=== PATIENT | male | born 1975 | race Two or more races ===

== ENCOUNTER 2024-04-06 18:47 | Inpatient (IN) | payer MEDICAID, OTHER ==
[~2024-04-06] VITALS: Ht 182.9 cm; Wt 141.0 kg
--- NOTE | 2024-04-06 19:27 | ED.PDOC ---
HPI Comments HPI: PMHx: PSHx: Initial Vital Signs: BP: 130/68 HR: 65 Temp: 98.0F SpO2: 97% RR: 17 \ HPI: Poor Historian. 48-year-old male presents to the emergency department for left-sided chest pain intermittent in the last two weeks worse today with the associated left jaw numbness tingling and radiation to the left upper extremity. Patient denies any use of drugs or tobacco. He only uses marijuana. Patient does not seem like he goes to the doctor much and he may have many underlying medical conditions that have not been formally diagnosed. Past Medcial History: Marijuana abuse, obesity, Past Surgical History: Denies any REVIEW OF SYSTEMS: CONSTITUTIONAL: Denies acute: fever, diaphoresis, chills, generalized weakness. HEAD: Denies acute: headache, photophobia Eyes: Denies acute: Double vision, vision loss, eye pain, eye discharge. EARS: Denies acute: tinnitus, hearing loss, ear discharge, ear pain, THROAT: Denies acute: sore throat, swelling, difficulty swallowing , pain with swallowing, change in voice. NECK: Denies acute: neck pain, neck swelling, stiff neck. HEART: Denies acute : palpitations, LUNGS: Denies acute: SOB, wheezing, cough, hemoptysis ABDOMEN: Denies acute: abdominal pain, Nausea, Vomiting, diarrhea, melena , hematemesis, hematochezia SKIN: Denies acute: rash, redness, lesions, itchiness. EXTREMITIES: Denies acute: calf pain, weakness, denies pain in extremity. Denies acute: Low back pain. Neuro: Denies acute: focal neurological deficit, motor or sensory focal neurological deficit, tremors, seizure like activity, confusion, dizziness, change in mental status, loss of bowel or bladder function, cauda equina like symptoms. : Denies acute: dysuria, hematuria, flank pain, increase in urinary frequency. PSYCH: Denies acute: hallucination, suicidal ideation, homicidal ideation. PHYSICAL EXAM: General: no acute distress, awake and alert. Head: normocephalic, atraumatic. Neck: supple, trachea is midline, no swelling. Throat: Normal phonation. Eyes:, no erythema, no purulent discharge, no proptosis, no icterus. Heart: regular rate, regular rhythm, no significant murmur appreciated. Lungs: no apparent respiratory distress, Able to speak in full sentences. No wheezing, no rhonchi, no crackles. No stridors Clear to auscultation bilaterally. Abdomen: non tender to palpation, non distended, soft, no guarding, no rebound, + bowel sounds. Obese Neuro: Awake, Alert, oriented to name, self, situation, follows commands GCS=15. Speech is normal. Skin: no petechia, no purpura, no cyanosis, non-pale, not jaundice. Lower extremities: --no - Pitting edema no deformity, no focal swelling, no calf TTP. Makes eye contact. moves all four extremities. Face: no apparent facial droop. Ambulating in the ED independently. Chief Complaint: Chest Pain Time Seen by MD: 18:59 Reviewed Notes: Medications, Allergies Allergies: Coded Allergies: NO KNOWN ALLERGIES (Unverified , 04/06/24) Information Source: Patient Mode of Arrival: Ambulatory Was a procedure done? Was a procedure done?: No X-Ray, Labs, Meds, VS Vital Signs Date Time Temp Pulse Resp B/P (MAP) Pulse Ox O2 Delivery O2 Flow Rate FiO2 04/06/24 19:01 Room Air 0 04/06/24 18:57 98.0 65 17 130/68 (88) 97 04/06/24 18:51 65 Lab Test 04/06/24 20:06 04/06/24 19:11 Range/Units Lactic Acid Level 0.8 0.4-2.0 mmol/L Troponin I High Sensitivity 3 L 3 L </=54 ng/L Thyroid Stimulating Hormone (TSH) 3.12 0.55-4.78 uIU/mL White Blood Count 11.8 H 4.4-10.8 10^3/uL Red Blood Count 5.38 4.5-5.90 10^6/uL Hemoglobin 15.1 13.5-17.5 g/dL Hematocrit 44.6 41.0-53.0 % Mean Corpuscular Volume 82.9 80.0-100.0 fL Mean Corpuscular Hemoglobin 28.0 28.0-32.0 pg Mean Corpuscular Hemoglobin Concent 33.8 32.0-36.0 g/dL Red Cell Distribution Width 14.1 11.8-14.3 % Platelet Count 271 140-450 10^3/uL Mean Platelet Volume 9.4 6.9-10.8 fL Neutrophils (%) (Auto) 53.3 37.0-80.0 % Lymphocytes (%) (Auto) 35.7 10.0-50.0 % Monocytes (%) (Auto) 8.0 0.0-12.0 % Eosinophils (%) (Auto) 2.0 0.0-7.0 % Basophils (%) (Auto) 1.0 0.0-2.0 % Neutrophils # (Auto) 6.3 1.6-8.6 10 ^3/uL Lymphocytes # (Auto) 4.2 0.4-5.4 10 ^3/uL Monocytes # (Auto) 0.9 0-1.3 10 ^3/uL Eosinophils # (Auto) 0.2 0-0.8 10 ^3/uL Basophils # (Auto) 0.1 0-0.2 10 ^3/uL Nucleated Red Blood Cells 0.0 % D-Dimer, Quantitative 0.20 0.0-0.49 mg/L FEU Sodium Level 137 136-145 mmol/L Potassium Level 3.4 L 3.5-5.1 mmol/L Chloride Level 105 98-107 mmol/L Carbon Dioxide Level 25 20-31 mmol/L Anion Gap 7 5-15 Blood Urea Nitrogen 13 9-23 mg/dL Creatinine 1.00 0.700-1.30 mg/dL Glomerular Filtration Rate Calc 94 >90 mL/min BUN/Creatinine Ratio 13.0 10.0-20.0 Serum Glucose 96 74-106 mg/dL Calcium Level 9.9 8.7-10.4 mg/dL Magnesium Level 1.8 1.6-2.6 mg/dL Total Bilirubin 0.5 0.2-1.0 mg/dL Aspartate Amino Transferase (AST) 25 13-40 U/L Alanine Aminotransferase (ALT) 41 H 7-40 U/L Alkaline Phosphatase 79 46-116 U/L Total Protein 7.5 5.7-8.2 g/dL Albumin 4.5 3.2-4.8 g/dL [address] [address] Ph: [phone] DIAGNOSTIC IMAGING Diagnostic Imaging Report : [id number] Signed PATIENT: SHADI TERRYEO ACCT: [id number] UNIT: [id number] : 1975 LOC: ER ROOM / BED: / AGE / SEX: 48 / M ADM STATUS: REG ER SERVICE 08 ORDERING PHYSICIAN: GERMAN HERNANDEZ DO PROCEDURE(s): CXRP - CHEST PORTABLE REASON: cp ORDER NUMBER(s): [id number], ACCESSION NUMBER(s): [id number] EXAM: XR Chest, 1 View CLINICAL INDICATION: cp TECHNIQUE: Frontal view of the chest. COMPARISON: None FINDINGS: LUNGS AND PLEURAL SPACES: Unremarkable. No consolidation. No pneumothorax. HEART: Unremarkable. No cardiomegaly. MEDIASTINUM: Unremarkable. Normal mediastinal contour. BONES/JOINTS: Unremarkable. No acute fracture. OTHER FINDINGS: . . . IMPRESSION: No acute cardiopulmonary process. HS:Y ATED BY: STIVEN HENLEY MD DICTATED DATE/TIME: 04/06/241924 SIGNED BY: STIVEN HENLEY MD SIGNED DATE/TIME: 04/06/241924 CC: Reevaluation 1ST: Unchanged Patient Education/Counseling: Diagnosis, Treatment Family Education/Counseling: Diagnosis, Treatment Departure 1 Departure Time of Disposition: 19:43 Impression: Primary Impression: Chest pain Disposition: 09 ADMITTED INPATIENT Admit to: [facility] Condition: Guarded Discharged With: Self Critical Care Note Critical Care Time?: No Heart Score Heart Score: Heart Score Response (Comments) Value History Moderate Suspicious 1 EKG Normal 0 Age 45-64 1 Risk Factors 1 or 2 risk factors 1 Troponin Normal limit 0 Total 3 I personally scribed for GERMAN HENRANDEZ DO ([email or web address]) on 04/06/24 at 19:27. Electronically submitted by Varun Toledo ([email or web address]). I personally scribed for GERMAN HERNANDEZ DO ([email or web address]) on 04/07/24 at 01:37. Electronically submitted by Abdelrahman Chi ([email or web address]). GERMAN HERNANDEZ DO Apr 06, 2024 19:27
[2024-04-06 19:40] LABS: Basophils # (auto) 0.1 10 ^3/uL (0-0.2); Eosinophils # (auto) 0.2 10 ^3/uL (0-0.8); Hematocrit 44.6 % (41.0-53.0); Hemoglobin 15.1 g/dL (13.5-17.5); Lymphocytes # (auto) 4.2 10 ^3/uL (0.4-5.4); Lymphocytes % (auto) 35.7 % (10.0-50.0); Mean Corpuscular Hgb Conc. 33.8 g/dL (32.0-36.0); Mean Corpuscular Volume 82.9 fL (80.0-100.0); Monocytes # (auto) 0.9 10 ^3/uL (0-1.3); Neutrophils # (auto) 6.3 10 ^3/uL (1.6-8.6); Neutrophils % (auto) 53.3 % (37.0-80.0); Platelet Count (auto) 271 10^3/uL (140-450); Red Blood Cells 5.38 10^6/uL (4.5-5.90); Red Cell Distribution Width 14.1 % (11.8-14.3); White Blood Cell 11.8 10^3/uL (4.4-10.8)
[2024-04-06 19:58] LABS: Albumin 4.5 g/dL (3.2-4.8); Alkaline Phosphatase 79 U/L (46-116); Anion Gap 7 (5-15); Aspartate Aminotransferase 25 U/L (13-40); Blood Urea Nitrogen 13 mg/dL (9-23); Calcium 9.9 mg/dL (8.7-10.4); Carbon Dioxide 25 mmol/L (20-31); Chloride 105 mmol/L (98-107); Glucose 96 mg/dL (74-106); Sodium 137 mmol/L (136-145)
[2024-04-06 19:59] LABS: Bilirubin, Total 0.5 mg/dL (0.2-1.0); Total Protein 7.5 g/dL (5.7-8.2)
[2024-04-06 20:04] LABS: Alanine Aminotransferase 41 U/L (7-40); Potassium 3.4 mmol/L (3.5-5.1)
--- NOTE | 2024-04-06 23:10 | ECG ---
[facility] Test Date: 2024-04-06 Test Time: 18:51:41 Pat Name: HIEU MELTON Department: ER Room: 0271T Gender: M Onion Tier: JOSUÉ : 1975 Requested By: MICHELLE ROY Order Number: [id number] Reading MD: Everardo Villalpando Measurements Intervals [place] Rate: 65 P: 14 ID: [id number] QRS: 73 QRSD: 109 T: -8 QT: 405 QTc: 422 Interpretive Statements Sinus rhythm Probable inferior infarct, age indeterminate Electronically Signed On 04-08-2024 10:20:56 PST by Everardo Villalpando Please click the below link to view image of tracing.
[2024-04-07] MEDS ORDERED: NITROGLYCERIN 0.4 MG SL TAB SL PRN
[2024-04-07] MEDS ORDERED: MORPHINE SULFATE INJ 2 MG/ml SYRG IV PRN
[2024-04-07] MEDS: ASPirin 325 MG TAB PO ONE (03:21)
[2024-04-07] MEDS: NITROGLYCERIN 0.4 MG SL TAB SL ONE (03:22)
[2024-04-07] MEDS: POTASSIUM CHL 20 Meq TABLET PO ONE (03:22)
[2024-04-07] MEDS: ATORVASTATIN 20 MG TAB PO ONE (03:22)
[2024-04-07] MEDS: SODIUM CHLORIDE 0.9% 500 ML IV ONE (03:42)
--- NOTE | 2024-04-07 04:10 | DVHHPRES ---
History of Present Illness Resident Creating Document: MIGUELYING RESIDENT History of Present Illness Patient is a 48-year-old male with a no significant past medical history came to the ED with a chief complaint of chest pain. Patient reports that since about 2 weeks ago he started to have intermittent chest pain which was substernal in location, pressure-like with the associated intermittent sharp pain, radiation into the left arm with numbness and tingling of the hand, and occurring at rest, no association with taking deep breaths, denies acid reflux, nausea, indigestio n, dysphagia. Patient reports that today the pain was worst of all and he took ibuprofen and to aspirins which improved the pain. Patient reported mild shortness of breath. Denied orthopnea, PND. Patient has never experienced similar chest pain before. Past medical history: None Past surgical history: Appendectomy Family history: No history of heart disease in family Social history: Patient was family and denies smoking tobacco, drink alcohol but smokes marijuana 4-5 blunts every day Home Medications: None Review of Systems Review of Systems At the time of examination patient reported mild substernal, nonradiating chest pain with the associated numbness in the left hand Denied shortness of breath, palpitations Denied nausea, vomiting, abdominal pain Allergies: Coded Allergies: NO KNOWN ALLERGIES (Unverified , 04/06/24) Medications Current Medications Medications Dose Ordered Sig/Ruy Route Start Time Stop Time Status Last Admin Dose Admin Nitroglycerin 0.4 mg Q5MINP PRN SL 04/07/24 00:00 Morphine Sulfate 2 mg Q30M PRN IV 04/07/24 00:00 Atorvastatin Calcium 40 mg HS PO 04/07/24 22:00 Exam Vital Signs Vital Signs Date Time Temp Pulse Resp B/P (MAP) Pulse Ox O2 Delivery O2 Flow Rate FiO2 04/07/24 03:04 97.8 62 16 143/84 (103) 96 97.8 04/06/24 19:01 Room Air 0 Exam Physical Examination Constitutional: Patient was alert and oriented to time, place and person, is morbidly obese with BMI 40, does not appear to be in any acute distress Gen - no pallor, no icterus, no cyanosis, no clubbing, no LAD, no edema . Skin - Patients skin is warm and dry. HEENT - normocephalic, atraumatic, moist mucous membranes. Neck - full ROM, no LAD, no JVD. Pulmonary - B/L vesicular breath sounds. no crackles , no wheezing cardiovascular - normal S1,S2 heard. no murmurs heard. GI - soft abdomen without tenderness to palpation . no hepatospleenomegaly. Bowel sounds normoactive Neurological - Bilateral upper extremity strength 5/5, bilateral lower extremity strength 5/5, no facial droop, normal speech, no tremor, no sensory deficiets. Labs/Xrays Labs Test 04/06/24 20:06 04/06/24 19:11 Range/Units Lactic Acid Level 0.8 0.4-2.0 mmol/L Troponin I High Sensitivity 3 L </=54 ng/L Thyroid Stimulating Hormone (TSH) 3.12 0.55-4.78 uIU/mL White Blood Count 11.8 H 4.4-10.8 10^3/uL Red Blood Count 5.38 4.5-5.90 10^6/uL Hemoglobin 15.1 13.5-17.5 g/dL Hematocrit 44.6 41.0-53.0 % Mean Corpuscular Volume 82.9 80.0-100.0 fL Mean Corpuscular Hemoglobin 28.0 28.0-32.0 pg Mean Corpuscular Hemoglobin Concent 33.8 32.0-36.0 g/dL Red Cell Distribution Width 14.1 11.8-14.3 % Platelet Count 271 140-450 10^3/uL Mean Platelet Volume 9.4 6.9-10.8 fL Neutrophils (%) (Auto) 53.3 37.0-80.0 % Lymphocytes (%) (Auto) 35.7 10.0-50.0 % Monocytes (%) (Auto) 8.0 0.0-12.0 % Eosinophils (%) (Auto) 2.0 0.0-7.0 % Basophils (%) (Auto) 1.0 0.0-2.0 % Neutrophils # (Auto) 6.3 1.6-8.6 10 ^3/uL Lymphocytes # (Auto) 4.2 0.4-5.4 10 ^3/uL Monocytes # (Auto) 0.9 0-1.3 10 ^3/uL Eosinophils # (Auto) 0.2 0-0.8 10 ^3/uL Basophils # (Auto) 0.1 0-0.2 10 ^3/uL Nucleated Red Blood Cells 0.0 % D-Dimer, Quantitative 0.20 0.0-0.49 mg/L FEU Sodium Level 137 136-145 mmol/L Potassium Level 3.4 L 3.5-5.1 mmol/L Chloride Level 105 98-107 mmol/L Carbon Dioxide Level 25 20-31 mmol/L Anion Gap 7 5-15 Blood Urea Nitrogen 13 9-23 mg/dL Creatinine 1.00 0.700-1.30 mg/dL Glomerular Filtration Rate Calc 94 >90 mL/min BUN/Creatinine Ratio 13.0 10.0-20.0 Serum Glucose 96 74-106 mg/dL Calcium Level 9.9 8.7-10.4 mg/dL Magnesium Level 1.8 1.6-2.6 mg/dL Total Bilirubin 0.5 0.2-1.0 mg/dL Aspartate Amino Transferase (AST) 25 13-40 U/L Alanine Aminotransferase (ALT) 41 H 7-40 U/L Alkaline Phosphatase 79 46-116 U/L Total Protein 7.5 5.7-8.2 g/dL Albumin 4.5 3.2-4.8 g/dL Assessment/Plan Assessment/Plan Acute chest pain r/o ACS ? Unstable angina PE less likely -12 lead ECG shows sinus rhythm with Q-wave and a T-wave inversion in lead III - troponins trended within normal limits - wells score < 4, ddimer- 0.2 - aspirin 325 mg and atorvastatin 40 mg given - started on atorvastatin and aspirin q.d. - cardiology consulted for further evaluation - HbA1c and lipid panel pending Hypokalemia - replenished Goals of care discussed with the patient for over 21 minutes. Full code Plan discussed with Dr. Cody Plan discussed with: Patient My Orders Orders - YING RIVERA RESIDENT Procedure Category Date Status Time Admit ADMIT 04/06/24 Transmitted 23:49 Nitroglycerin PHA 04/07/24 In Process Sublingual (Ntrostat 00:00 Morphine Sulfate PHA 04/07/24 In Process Injection 00:00 Oxygen By Nasal RT 04/06/24 Transmitted Cannula 23:49 Stat Ekg For Chest WILLEM 04/06/24 In Process Pain 23:49 Notify Of Changes WILLEM 04/06/24 In Process From Base 23:49 Commutator Repairer For WILLEM 04/06/24 In Process 24 Hours 23:49 Emergency Dysrhythmia WILLEM 04/06/24 In Process Protocol 23:49 Drug Screen LAB 04/06/24 Logged 23:49 Urinalysis LAB 04/06/24 Logged 23:49 Complete Blood Count LAB 04/07/24 Logged 04:00 Comprehensive LAB 04/07/24 Logged Metabolic Panel 04:00 Covid19 Antigen [place] LAB 04/06/24 Logged Rapid Influenza A&B LAB 04/06/24 Logged 23:49 Atorvastatin (Lipitor) PHA 04/07/24 In Process 22:00 Code Status CODE 04/07/24 Transmitted 00:02 Cardiac DIET 04/07/24 Transmitted Diet-2gna,Lofat,Lochol Breakfast Date of Service: Apr 06, 2024 Billing Provider: DOTTY CODY MD Common Visit Codes: [id number] INP/OBS CARE (HIGH) Secondary Visit Codes: [id number] CARE PLAN 30 MINUTES YING RIVERA RESIDENT Apr 07, 2024 04:10 DOTTY CODY MD Apr 07, 2024 17:58
[2024-04-07 05:55] VITALS: PULSE 59; RESP 18; O2SAT 95
[2024-04-07 06:59] LABS: Urine Bacteria None Seen /hpf (None Seen)
[2024-04-07 07:21] LABS: Urine Blood Negative /uL (Negative); Urine Clarity Clear (Clear); Urine Color Light-Yellow (Yellow); Urine Mucus FEW (None Seen); Urine Protein, UAD Negative (Negative); Urine Specific Gravity 1.015 (1.001-1.035); Urine Squamous Epithelial Cell FEW /hpf (<5); Urine Urobilinogen Normal (Negative); Urine WBC 1 /hpf (0 - 3); Urine pH 5.5 (5.0-9.0)
[2024-04-07 07:37] LABS: Amphetamine Screen, Urine Neg (NEGATIVE); Barbiturate Scree,Urine Neg (NEGATIVE); Benzodiazephine Screen, Urine Neg (NEGATIVE); Cannabinoid Screen, Urine Pos (NEGATIVE); Cocaine Screen, Urine Neg (NEGATIVE); Opiate Scree,Urine Neg (NEGATIVE); Phencyclidine Screen, Urine Neg (NEGATIVE)
[2024-04-07 07:43] LABS: Basophils # (auto) 0.1 10 ^3/uL (0-0.2); Basophils % (auto) 1.1 % (0.0-2.0); Eosinophils # (auto) 0.2 10 ^3/uL (0-0.8); Eosinophils % (auto) 2.1 % (0.0-7.0); Hemoglobin 15.3 g/dL (13.5-17.5); Lymphocytes # (auto) 2.7 10 ^3/uL (0.4-5.4); Lymphocytes % (auto) 25.4 % (10.0-50.0); Mean Corpuscular Hemoglobin 28.1 pg (28.0-32.0); Mean Corpuscular Volume 82.9 fL (80.0-100.0); Monocytes # (auto) 0.9 10 ^3/uL (0-1.3); Monocytes % (auto) 8.6 % (0.0-12.0); Neutrophils # (auto) 6.7 10 ^3/uL (1.6-8.6); Neutrophils % (auto) 62.8 % (37.0-80.0); Platelet Count (auto) 260 10^3/uL (140-450); Red Blood Cells 5.43 10^6/uL (4.5-5.90); Red Cell Distribution Width 14.1 % (11.8-14.3); White Blood Cell 10.7 10^3/uL (4.4-10.8)
[2024-04-07 07:46] LABS: COVID19 ANTIGEN SOFIA FIA NEGATIVE (NEGATIVE); Rapid Influenza A Negative (Negative); Rapid Influenza B Negative (Negative)
[2024-04-07 08:00] VITALS: PULSE 60; RESP 14; O2SAT 95
[2024-04-07 08:07] LABS: HDL Cholesterol 49 mg/dL (40-59)
[2024-04-07 08:08] LABS: Cholesterol 211 mg/dL (< 200); LDL Cholesterol 153 mg/dL (< 100); Triglycerides 155 mg/dL (< 150)
[2024-04-07 08:09] LABS: Alanine Aminotransferase 39 U/L (7-40); Albumin 4.2 g/dL (3.2-4.8); Alkaline Phosphatase 75 U/L (46-116); Anion Gap 8 (5-15); Aspartate Aminotransferase 23 U/L (13-40); BUN/Creatinine Ratio 9.6 (10.0-20.0); Calcium 9.9 mg/dL (8.7-10.4); Carbon Dioxide 25 mmol/L (20-31); Chloride 104 mmol/L (98-107); Potassium 3.9 mmol/L (3.5-5.1); Sodium 137 mmol/L (136-145)
[2024-04-07 08:10] LABS: Bilirubin, Total 0.8 mg/dL (0.2-1.0); Total Protein 7.2 g/dL (5.7-8.2)
[2024-04-07 08:13] LABS: Blood Urea Nitrogen 9 mg/dL (9-23); Glucose 115 mg/dL (74-106)
[2024-04-07] MEDS: ASPirin 81 mg TAB PO SCH (10:39)
[2024-04-07 10:55] VITALS: BP 161/88; PULSE 76; RESP 17
--- NOTE | 2024-04-07 14:00 | DVHINCON2 ---
Date Seen: Apr 07, 2024 Referring Physician MD [place] resident Reason for Consultation Chest pain, ?unstable angina History of Present Illness This is a 48-year-old male patient who presents to the emergency room with chief complaint of chest pain for two weeks. The patient describes the pain as unprovoked, intermittent, pressure-like in nature, left-sided with radiation down his left arm with associated left arm numbness. The patient comes to emergency room for further evaluation. Initial twelve lead electrocardiogram reveals normal sinus rhythm with nonspecific ST changes to inferior lead (III). A repeat twelve lead electrocardiogram reveals normal sinus rhythm without any significant ST segment changes. Initial and repeat troponin level have been negative. Significant past medical history includes marijuana use and morbid obesity. The patient denies following up with a primary care doctor in the outpatient setting. Past Medical History Past medical history reviewed. No other significant than mentioned above. Past Surgical History Denies Family History Family history reviewed. Social History Patient admits to marijuana use, denies all other illicit drugs The patient denies any alcohol use Patient denies tobacco use Allergies: Coded Allergies: NO KNOWN ALLERGIES (Unverified , 04/06/24) Home Meds Denies any home medications Current Medications Current Medications Medications (Trade) Dose Ordered Sig/Ruy Route PRN Reason Start Time Stop Time Status Last Admin Nitroglycerin (Ntrostat Sublingual) 0.4 mg Q5MINP PRN SL FOR CHEST PAIN 04/07/24 00:00 Morphine Sulfate 2 mg Q30M PRN IV FOR CHEST PAIN 04/07/24 00:00 Atorvastatin Calcium (Lipitor) 40 mg HS PO 04/07/24 22:00 Aspirin 81 mg DAILY PO 04/07/24 10:00 04/07/24 10:39 Atorvastatin Calcium (Lipitor) 40 mg HS PO 04/07/24 22:00 04/07/24 04:05 DC Review of Systems Constitutional: No symptom reported Ears, Nose, & Throat: No symptom reported Eyes: No symptom reported Neurological: No symptoms reported Pulmonary/Respiratory: No symptoms reported Cardiovascular: Chest pain Gastrointestinal: No symptom reported Genitourinary: No symptom reported Musculoskeletal: No symptom reported Skin: No symptom reported Psychiatric: No symptom reported Endocrine: No symptom reported Hematologic/Lymphatic: No symptom reported Vital Signs Vital Signs Date Time Temp Pulse Resp B/P (MAP) Pulse Ox O2 Delivery O2 Flow Rate FiO2 04/07/24 12:00 77 16 122/58 (79) 99 04/07/24 08:00 98.4 98.4 04/07/24 08:00 Room Air* 0 21 Physical Exam General Appearance: Cooperative. Morbidly obese Pulmonary/Respiratory: Clear, bilateral breaths sounds. Cardiovascular/Chest: Regular rate and rhythm. Peripheral Pulses: 2+ Radial (R). 2+ Radial (L). 2+ Pedal (R). 2+ Pedal (L) Abdominal Exam: Normal bowel sounds. Ankle Exam: Negative ankle edema Lower extremities: Negative lower extremity edema Neuro/Mental Status: A/OX4, coherent. Thoughts/Psych: Normal thought pattern. Appropriate mood and affect. Good judgment and insight. Appearance: No acute distress. Skin Exam: Normal inspection. Normal color. Warm and dry. Labs/Diagnostic Data Labs Test 04/07/24 07:10 04/07/24 06:25 04/07/24 05:55 04/06/24 20:06 Range/Units White Blood Count 10.7 4.4-10.8 10^3/uL Red Blood Count 5.43 4.5-5.90 10^6/uL Hemoglobin 15.3 13.5-17.5 g/dL Hematocrit 45.0 41.0-53.0 % Mean Corpuscular Volume 82.9 80.0-100.0 fL Mean Corpuscular Hemoglobin 28.1 28.0-32.0 pg Mean Corpuscular Hemoglobin Concent 34.0 32.0-36.0 g/dL Red Cell Distribution Width 14.1 11.8-14.3 % Platelet Count 260 140-450 10^3/uL Mean Platelet Volume 9.1 6.9-10.8 fL Neutrophils (%) (Auto) 62.8 37.0-80.0 % Lymphocytes (%) (Auto) 25.4 10.0-50.0 % Monocytes (%) (Auto) 8.6 0.0-12.0 % Eosinophils (%) (Auto) 2.1 0.0-7.0 % Basophils (%) (Auto) 1.1 0.0-2.0 % Neutrophils # (Auto) 6.7 1.6-8.6 10 ^3/uL Lymphocytes # (Auto) 2.7 0.4-5.4 10 ^3/uL Monocytes # (Auto) 0.9 0-1.3 10 ^3/uL Eosinophils # (Auto) 0.2 0-0.8 10 ^3/uL Basophils # (Auto) 0.1 0-0.2 10 ^3/uL Nucleated Red Blood Cells 0.0 % Sodium Level 137 136-145 mmol/L Potassium Level 3.9 3.5-5.1 mmol/L Chloride Level 104 98-107 mmol/L Carbon Dioxide Level 25 20-31 mmol/L Anion Gap 8 5-15 Blood Urea Nitrogen 9 9-23 mg/dL Creatinine 0.94 0.700-1.30 mg/dL Glomerular Filtration Rate Calc 101 >90 mL/min BUN/Creatinine Ratio 9.6 L 10.0-20.0 Serum Glucose 115 H 74-106 mg/dL Hemoglobin A1c 6.3 H <5.7 % A1C Calcium Level 9.9 8.7-10.4 mg/dL Total Bilirubin 0.8 0.2-1.0 mg/dL Aspartate Amino Transferase (AST) 23 13-40 U/L Alanine Aminotransferase (ALT) 39 7-40 U/L Alkaline Phosphatase 75 46-116 U/L Total Protein 7.2 5.7-8.2 g/dL Albumin 4.2 3.2-4.8 g/dL Triglycerides Level 155 H < 150 mg/dL Cholesterol Level 211 H < 200 mg/dL LDL Cholesterol 153 H < 100 mg/dL HDL Cholesterol 49 40-59 mg/dL Urine Color Light-yellow Yellow Urine Clarity Clear Clear Urine pH 5.5 5.0-9.0 Urine Specific [place] 1.015 1.001-1.035 Urine Protein Negative Negative Urine Ketones Trace Negative Urine Blood Negative Negative /uL Urine Nitrite Negative Negative Urine Bilirubin Negative Negative Urine Urobilinogen Normal Negative mg/dL Urine Leukocyte Esterase Negative Negative /uL Urine RBC <1 0 - 3 /hpf Urine WBC 1 0 - 3 /hpf Urine Squamous Epithelial Cells Few <5 /hpf Urine Bacteria None seen None Seen /hpf Urine Mucus Few None Seen Urine Glucose Normal Normal mg/dL Urine Opiates Screen Neg NEGATIVE Urine Fentanyl Screen Neg NEGATIVE Urine Barbiturates Screen Neg NEGATIVE Urine Phencyclidine Screen Neg NEGATIVE Urine Amphetamines Screen Neg NEGATIVE Urine Benzodiazepines Screen Neg NEGATIVE Urine Cocaine Screen Neg NEGATIVE Urine Cannabinoids Screen Pos NEGATIVE Influenza Type A Antigen Negative Negative Influenza Type B Antigen Negative Negative SARS-CoV-2 Antigen (Rapid) Negative NEGATIVE Lactic Acid Level 0.8 0.4-2.0 mmol/L Troponin I High Sensitivity 3 L </=54 ng/L Thyroid Stimulating Hormone (TSH) 3.12 0.55-4.78 uIU/mL Test 04/06/24 19:11 Range/Units D-Dimer, Quantitative 0.20 0.0-0.49 mg/L FEU Magnesium Level 1.8 1.6-2.6 mg/dL Assessment Chest pain, rule out coronary ischemia Dyslipidemia, newly diagnosed Prediabetes, newly diagnosed Hypokalemia, resolved Marijuana use Morbidly obese Plan/Recommendation We will continue with the following plan/recommendations (Dr. Esposito): The patient seen and examined at bedside with . The patient was taken to the stress lab and underwent a treadmill stress test. No significant ST segment changes noted during test. The patient was only able to complete 8 minutes and 12 seconds of test given that he became fatigued. The patient denies any chest pain during testing. Continue with aggressive lipid-lowering agent. Risk factor modifications discussed with the patient including dietary and lifestyle changes. In the setting of an unremarkable echocardiogram, there is no further inpatient workup indicated at this time. Thank you for allowing us to care for this patient. Please call with any questions or concerns. Critical care time spent: 42 minutes This medical document was created using an electronic medical record system with voice recognition software and computerized dictation system. Although this document has been carefully reviewed, there might still be some phonetic and typographical errors. Occasional wrong-word or ``sound-alike substitutions may have occurred due to the inherent limitations of voice recognition software. These areas are purely typographical due to imperfections of the software programs and do not reflect any compromise in the patient's medical care. Please read the chart carefully and recognize, using context, where these subst itutions have occurred. Plan discussed with: Patient NYHA Physical activity limitations: NA Date of Service: Apr 07, 2024 Billing Provider: AARTI ESPOSITO MD Cardiology Common Codes: [id number] INP/OBS CARE (High) Cardiology Consultation Codes: [id number] CONSULT <45MIN KRIS SEQUEIRA LOG HAUL OPERATOR Apr 07, 2024 14:00
--- NOTE | 2024-04-07 14:05 | DVHCARD ---
Cardiology Stress Test [place] Treadmill Stress Test [place] Referring MD: MARYSOL Beebe Protocol: Johnie (without cardiolite) Reason for referral: Chest Pain Target heart Rate:@85%: 147 Percent MPHR: 174 METS: 10.1 Resting Heart rate: 68 Resting Blood Pressure: 161/88 Exercise Heart Rate: 169 Exercise Blood Pressure: 212/95 Reason for Termination of Test: Shortness of breath Baseline EKG: Normal sinus rhythm Stress EKG: Sinus tachycardia Functional Capacity: Mildly Decreased Heart Rate Response: Adequate Blood Pressure Response: Hypertensive Clinical response: Non-ischemic Arrhythmia?: No Cardiolite Injected?: No ST-T Changes: Non/Minimal Probability of Inducible Ische: Low Comments: Patient has stopped at 8 minutes and 12 seconds; short of breath Date of Service: Apr 07, 2024 Billing Provider: AARTI ESPOSITO MD Cardiology Common Codes: PROCEDURE ONLY Treadmill w/o Cardiolite: [id number], INTERP, RPT KRIS BEEBE Apr 07, 2024 14:05
--- NOTE | 2024-04-07 16:15 | DVHPNRES ---
Progress Note Date Seen: Apr 07, 2024 Resident Creating Document: KAYLEY BURRELL RESIDENT Medical Necessity Reason Pt with a Central, PICC or Fol: No Subjective Review of Systems Patient is a 48-year-old male with no significant past medical history who came in due to chest pain. According to the patient he has been experiencing substernal pressure-like chest pain for the past 2 weeks which radiates to his left arm, however, patient notes that last night on 04/06/2024 pain started radiating towards his jaw/lower lip which prompted this visit to the hospital. Patient notes that pain worsens with inactivity and sitting, also notes numbness and tingling in fingertips. He notes pain is sometimes 10/10 however at present notes it as 1/10. Patient notes taking aspirin relieves the pain for a couple hours before the pain returns again. EKG showed nonspecific T-wave inversion, serial troponins were negative and CXR showed no acute cardiopulmonary disease. Past surgical history: Appendectomy Home medications: Tylenol, aspirin, ibuprofen only sometimes as needed Past Hospitalization: Denies Social & Personal history: Patient lives with his and works as a bus mechanic. Denies using tobacco, however, smokes marijuana 3-4 joints per day. Denies using any other drugs. Allergies: Denies Patient seen and examined at bedside. Patient is alert and oriented to time, place person and responding to all questions. Eyes: No Pain, No Vision change, No Conjunctivae inflammation, No Eyelid inflammation, No Other, No Redness ENT: No Ear pain, No Ear discharge, No Nose pain, No Nose discharge, No Nose congestion, No Mouth pain, No Mouth swelling, No Throat pain, No Throat swelling, No Other Cardiovascular: No Chest Pain, No Palpitations, No Orthopnea, No Paroxysmal No Dyspnea, No Edema, No Lt Headedness, No Other Respiratory: No Cough, No Dry, No Shortness of breath, No SOB with exertion, No Wheezing, No Hemoptysis, No Pleuritic Pain, No Sputum, No Other Gastrointestinal: No Nausea, No Vomiting, No Abdominal Pain, No Diarrhea, No Constipation, No Melena, No Hematochezia, No Other Genitourinary: No Dysuria, No Frequency, No Incontinence, No Hematuria, No Retention, No Other Musculoskeletal: No other, No neck pain, No shoulder pain, No arm pain, No back pain, No hand pain, No leg pain, No foot pain Skin: No Rash, No Lesions, No Jaundice, No Bruising, No Other Objective vital signs Vital Sign Date Time Temp Pulse Resp B/P (MAP) Pulse Ox O2 Delivery O2 Flow Rate FiO2 04/07/24 14:00 70 16 115/62 (79) 98 04/07/24 08:00 98.4 98.4 04/07/24 08:00 Room Air* 0 21 medications Current Medications Medications Dose Ordered Sig/Ruy Route Start Time Stop Time Status Last Admin Dose Admin Nitroglycerin 0.4 mg Q5MINP PRN SL 04/07/24 00:00 Morphine Sulfate 2 mg Q30M PRN IV 04/07/24 00:00 Atorvastatin Calcium 40 mg HS PO 04/07/24 22:00 Aspirin 81 mg DAILY PO 04/07/24 10:00 04/07/24 10:39 81 MG Examination General Appearance: Cooperative. Well developed. Well nourished. NAD Head Exam: Normal inspection Neck Exam: Normal inspection. Non-tender. Normal alignment Pulmonary/Respiratory: Chest non-tender to palpation. Clear bilateral breath sounds, no crackles, no wheezing. Cardiovascular/Chest: Regular rate and rhythm. No murmurs. No JVD. Peripheral Pulses: 2+ Radial (R). 2+ Radial (L). 2+ Pedal (R). 2+ Pedal (L) Abdominal Exam: Normal bowel sounds. Soft. normal abdomen, no visible veins, Nontender. No hepatospenomegaly. 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 Coherent. Thoughts/Psych: Normal thought pattern. Appropriate mood and affect. Good judgement and insight Skin Exam: Normal inspection. Normal color. Warm. Dry laboratory and microbiology Laboratory Tests 04/07/24 07:10 Test 04/07/24 07:10 Range/Units Serum Glucose 115 H 74-106 mg/dL Labs and/or images reviewed: Labs reviewed by me, Image(s) reviewed by me Problem List/Assessment/Plan Problem List/Assessment/Plan Chest pain, ruling out ACS - CXR: No acute cardiopulmonary disease - aspirin 325 mg once, followed by aspirin 81 mg p.o. daily - cardiology on board, patient completed treadmill exercise stress test today: No significant ST segment changes noted during test, patient was only able to complete 8 minutes and 12 seconds of the tests before he became fatigued. Denied any chest pain during testing. Probability of inducible ischemia low, low [address]-T wave changes, clinical response nonischemic. Prediabetes, Hb A1c 6.3, newly diagnosed Dyslipidemia, newly diagnosed - atorvastatin 40 mg Hypokalemia, improved - repleted with p.o. potassium 40 mEq Morbid obesity, BMI 40.7 - counseled about lifestyle modifications including healthy diet and physical activity Goals of care: Full code, discussed for >16 minutes on 04/07/2024 Plan discussed with patient in at bedside Plan discussed with Dr. Figueroa Plan discussed with: Patient, Spouse, Other (RN) My Orders My Orders Orders - KAYLEY BURRELL Procedure Category Date Status Time Electrocardigram EKG 04/07/24 Logged 09:01 KAYLEY BURRELL Apr 07, 2024 16:15
--- NOTE | 2024-04-07 18:48 | ECG ---
[facility] Test Date: 2024-04-07 Test Time: 09:40:24 Pat Name: HIEU MELTON Department: ED Room: 0271T Gender: M Java Sql Developer: DESIRE : 1975 Requested By: KAYLEY BURRELL Order Number: [id number] Reading MD: Everardo Villalpando Measurements Intervals [place] Rate: 62 P: 36 VT: 178 QRS: 60 QRSD: 100 T: 46 QT: 412 QTc: 419 Interpretive Statements Sinus rhythm Electronically Signed On 04-08-2024 10:23:04 PST by Everardo Villalpando Please click the below link to view image of tracing.
[2024-04-07] MEDS: ATORVASTATIN 20 MG TAB PO SCH (21:30)
[2024-04-07 22:00] VITALS: BP 127/73; PULSE 73; RESP 18; TEMP 97.5; O2SAT 95
[2024-04-07] MEDS ORDERED: ATORVASTATIN 20 MG TAB PO SCH (22:00)
[2024-04-07 22:33] VITALS: BP 127/73; PULSE 73; RESP 18; TEMP 97.5; O2SAT 95
[2024-04-07 22:35] VITALS: BP 127/73; PULSE 73; RESP 18; TEMP 97.5; O2SAT 95
[2024-04-08] VITALS (8 sets, daily range): BP systolic 116–130; BP diastolic 68–79; PULSE 58–72; RESP 16–19; TEMP 97.8–98.3; O2SAT 94–98
--- NOTE | 2024-04-08 06:22 | DVHDSRES ---
Discharge Summary Date of Admission Resident Creating Document: KAYLEY BURRELL RESIDENT Apr 06, 2024 at 23:55 Date of Discharge: Apr 08, 2024 Admitting Diagnosis Chest pain Labs/Diagnostic Data: Laboratory Results Test 04/07/24 07:10 04/07/24 06:25 04/07/24 05:55 04/06/24 20:06 White Blood Count 10.7 10^3/uL (4.4-10.8) Red Blood Count 5.43 10^6/uL (4.5-5.90) Hemoglobin 15.3 g/dL (13.5-17.5) Hematocrit 45.0 % (41.0-53.0) Mean Corpuscular Volume 82.9 fL (80.0-100.0) Mean Corpuscular Hemoglobin 28.1 pg (28.0-32.0) Mean Corpuscular Hemoglobin Concent 34.0 g/dL (32.0-36.0) Red Cell Distribution Width 14.1 % (11.8-14.3) Platelet Count 260 10^3/uL (140-450) Mean Platelet Volume 9.1 fL (6.9-10.8) Neutrophils (%) (Auto) 62.8 % (37.0-80.0) Lymphocytes (%) (Auto) 25.4 % (10.0-50.0) Monocytes (%) (Auto) 8.6 % (0.0-12.0) Eosinophils (%) (Auto) 2.1 % (0.0-7.0) Basophils (%) (Auto) 1.1 % (0.0-2.0) Neutrophils # (Auto) 6.7 10 ^3/uL (1.6-8.6) Lymphocytes # (Auto) 2.7 10 ^3/uL (0.4-5.4) Monocytes # (Auto) 0.9 10 ^3/uL (0-1.3) Eosinophils # (Auto) 0.2 10 ^3/uL (0-0.8) Basophils # (Auto) 0.1 10 ^3/uL (0-0.2) Nucleated Red Blood Cells 0.0 % Sodium Level 137 mmol/L (136-145) Potassium Level 3.9 mmol/L (3.5-5.1) Chloride Level 104 mmol/L (98-107) Carbon Dioxide Level 25 mmol/L (20-31) Anion Gap 8 (5-15) Blood Urea Nitrogen 9 mg/dL (9-23) Creatinine 0.94 mg/dL (0.700-1.30) Glomerular Filtration Rate Calc 101 mL/min (>90) BUN/Creatinine Ratio 9.6 (10.0-20.0) Serum Glucose 115 mg/dL (74-106) Hemoglobin A1c 6.3 % A1C (<5.7) Calcium Level 9.9 mg/dL (8.7-10.4) Total Bilirubin 0.8 mg/dL (0.2-1.0) Aspartate Amino Transferase (AST) 23 U/L (13-40) Alanine Aminotransferase (ALT) 39 U/L (7-40) Alkaline Phosphatase 75 U/L (46-116) Total Protein 7.2 g/dL (5.7-8.2) Albumin 4.2 g/dL (3.2-4.8) Triglycerides Level 155 mg/dL (< 150) Cholesterol Level 211 mg/dL (< 200) LDL Cholesterol 153 mg/dL (< 100) HDL Cholesterol 49 mg/dL (40-59) Urine Color Light-yellow (Yellow) Urine Clarity Clear (Clear) Urine pH 5.5 (5.0-9.0) Urine Specific [place] 1.015 (1.001-1.035) Urine Protein Negative (Negative) Urine Ketones Trace (Negative) Urine Blood Negative /uL (Negative) Urine Nitrite Negative (Negative) Urine Bilirubin Negative (Negative) Urine Urobilinogen Normal mg/dL (Negative) Urine Leukocyte Esterase Negative /uL (Negative) Urine RBC <1 /hpf (0 - 3) Urine WBC 1 /hpf (0 - 3) Urine Squamous Epithelial Cells Few /hpf (<5) Urine Bacteria None seen /hpf (None Seen) Urine Mucus Few (None Seen) Urine Glucose Normal mg/dL (Normal) Urine Opiates Screen Neg (NEGATIVE) Urine Fentanyl Screen Neg (NEGATIVE) Urine Barbiturates Screen Neg (NEGATIVE) Urine Phencyclidine Screen Neg (NEGATIVE) Urine Amphetamines Screen Neg (NEGATIVE) Urine Benzodiazepines Screen Neg (NEGATIVE) Urine Cocaine Screen Neg (NEGATIVE) Urine Cannabinoids Screen Pos (NEGATIVE) Influenza Type A Antigen Negative (Negative) Influenza Type B Antigen Negative (Negative) SARS-CoV-2 Antigen (Rapid) Negative (NEGATIVE) Lactic Acid Level 0.8 mmol/L (0.4-2.0) Troponin I High Sensitivity 3 ng/L (</=54) Thyroid Stimulating Hormone (TSH) 3.12 uIU/mL (0.55-4.78) Test 04/06/24 19:11 D-Dimer, Quantitative 0.20 mg/L FEU (0.0-0.49) Magnesium Level 1.8 mg/dL (1.6-2.6) Other Laboratory Tests 04/07/24 07:10 Brief Hx & Hospital Course: Patient is a 48-year-old male with no significant past medical history who came in due to chest pain. According to the patient he has been experiencing substernal pressure-like chest pain for the past 2 weeks which radiates to his left arm, however, patient notes that last night on 04/06/2024 pain started radiating towards his jaw/lower lip which prompted this visit to the hospital. Patient notes that pain worsens with inactivity and sitting, also notes numbness and tingling in fingertips. He notes pain is sometimes 10/10 however at present notes it as 1/10. Patient notes taking aspirin relieves the pain for a couple hours before the pain returns again. EKG showed nonspecific T-wave inversion, serial troponins were negative and CXR showed no acute cardiopulmonary disease. Hospital course: Chest x-ray showed no acute cardiopulmonary disease, patient was given aspirin 325 mg once follow up aspirin 81 mg p.o. daily. Cardiology was consulted and patient underwent a treadmill exercise stress test which showed no significant ST segment changes during test. Patient is only able to complete 8 minutes and 12 seconds of the chest before became fatigued. Denied any chest pain during testing. Probability of inducible ischemia low, low-minimal ST-T wave changes. Clinical response: nonischemic. Patient was also continued on atorvastatin 40 mg, potassium was repleted with p.o. potassium. Patient was counseled in detail about lifestyle modifications including healthy diet and physical activity, discussion about risk factors for CAD was also held with patient and spouse at bedside, all questions were answered and concerns were addressed. His hospital course was uncomplicated. General Appearance: Cooperative. Well developed. Well nourished. NAD Head Exam: Normal inspection Neck Exam: Normal inspection. Non-tender. Normal alignment Pulmonary/Respiratory: Chest non-tender to palpation. Clear bilateral breath sounds, no crackles, no wheezing. Cardiovascular/Chest: Regular rate and rhythm. No murmurs. No JVD. Peripheral Pulses: 2+ Radial (R). 2+ Radial (L). 2+ Pedal (R). 2+ Pedal (L) Abdominal Exam: Normal bowel sounds. Soft. normal abdomen, no visible veins, Nontender. No hepatospenomegaly. 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 Coherent. Thoughts/Psych: Normal thought pattern. Appropriate mood and affect. Good judgement and insight Skin Exam: Normal inspection. Normal color. Warm. Dry Consults/Reason for consult Cardiology: Chest pain Operations or Procedures Cardiology Stress Test [place] Treadmill Stress Test [place] Referring MD: MARYSOL Beebe Protocol: Johnie (without cardiolite) Reason for referral: Chest Pain Target heart Rate:@85%: 147 Percent MPHR: 174 METS: 10.1 Resting Heart rate: 68 Resting Blood Pressure: 161/88 Exercise Heart Rate: 169 Exercise Blood Pressure: 212/95 Reason for Termination of Test: Shortness of breath Baseline EKG: Normal sinus rhythm Stress EKG: Sinus tachycardia Functional Capacity: Mildly Decreased Heart Rate Response: Adequate Blood Pressure Response: Hypertensive Clinical response: Non-ischemic Arrhythmia?: No Cardiolite Injected?: No ST-T Changes: Non/Minimal Probability of Inducible [place]sche: Low Comments: Patient has stopped at 8 minutes and 12 seconds; short of breath Condition at Discharge: Good Final Diagnosis/Problems List Chest pain likely due to anxiety versus panic attack, ruled out ACS Prediabetes Dyslipidemia Hypokalemia Morbid obesity Discharge Disposition: Home Discharge Instruct/Medications Diet: Consistent carbohydrate Activity: No Restrictions, As Tolerated Follow Up/Referral: Please follow up with PCP in 1-2 weeks Please follow up with pulmonology for possible spirometry study Discharge Statement: "Patient was advised to return to the ER or call 911 if any headaches, dizziness, shortness of breath, chest pain, abdominal pain, bleeding, fevers, or worsening of medical condition. Patient was counseled about treatment plan, medications, possible side effects, patientverbalized understanding. All questions were answered to the best of my ability. This discharge took greater then 30 minutes in planning, reviewing documentation, counseling the patient, and discussing with other team members." ASSESSMENT ASSESSMENT Assessment KAYLEY BURRELL RESIDENT Apr 08, 2024 06:22
--- NOTE | 2024-04-08 14:01 | DVHSR ---
APPROVED REPORT EXAM: Two-dimensional and M-mode echocardiogram with Doppler and color Doppler. Blood Pressure: 130/79 mmHg INDICATION SOB RISK FACTORS Obesity: Height: 6'0, Weight: 310 DIMENSIONS LVDd5.3 (3.8-5.7cm)LA (2D)3.0 (1.9-4.0cm)Aortic Root3.4 (2.0-3.7cm) LVDs3.1 (2.5-4.0cm)LA (MM) (1.9-4.0cm)Aortic Cusp Exc1.7 (1.5-2.0cm) EF (%) 60.0 (55-70%)Rt. Atrium3.4 (1.9-4.0cm)Asc. Aorta cm IVSd0.7 (0.7-1.1cm)RV (D)4.1 (1.8-2.4cm) PWd1.0 (0.7-1.1cm) Mitral Valve MitralMitral Stenosis E wave0.47m/sMV Mean GR.mmHg A wave0.54m/sMV Peak GR.mmHg E/A ratio0.92D MVAcm2 DECEL [id number] 1/2 Tim[place] Aortic Valve Aortic ValveAortic Stenosis V11.20m/Alex Mean GR.3mmHg V21.25m/Alex Peak GR.6mmHg LVOT Diameter2.3 (1.8-2.4cm)Doppler AVA3.99cm2 Pulmonic Valve V20.94m/s LEFT VENTRICLE The left ventricle is of normal size. Left ventricular wall thickness is normal. Ejection fraction is normal and is estimated at 60%. There is no regional wall motion abnormalities. Diastolic functi on appears to be preserved. E to E prime ratio is in the normal range. RIGHT VENTRICLE The right ventricle is of normal size. Right ventricular systolic function is normal. ATRIA Both atria are of normal size. Not well visualized. MITRAL VALVE Normal structure and function. There is no significant mitral regurgitation. PULMONIC VALVE Likely normal. TRICUSPID VALVE Normal structure and function. There is trace tricuspid regurgitation. PA systolic pressure could n ot be estimated. AORTIC VALVE Normal structure and function. GREAT VESSELS The aortic root is of normal size. Proximal ascending aorta isn't well visualized. PERICARDIAL EFFUSION No pericardial effusion. IVC is not well visualized. Other Information Quality : Technically LimitedRhythm : Technically limited study due to body habitus. Conclusion Normal left ventricular size and systolic function. Ejection fraction is estimated at 60%. Normal right ventricular size and systolic function. No hemodynamically significant valvular disease. PA systolic pressure could not be estimated. No pericardial effusion.
== END 2024-04-08 18:00 | disposition home or self-care (01) | DRG 203 ==
LOC: ER 18:47 → TELE 23:55 → UNDOADMIN 04-07 00:06 → TELE 04-07 00:06 → TELE-WESTW 04-07 21:17
PROVIDERS: ADMIT Student in an Organized Health Care Education/Training Program; ATTEND Student in an Organized Health Care Education/Training Program
DX: R07.89 Other chest pain (principal); E66.01 Morbid (severe) obesity due to excess calories; E78.5 Hyperlipidemia, unspecified; E87.6 Hypokalemia; R73.03 Prediabetes; Z20.822 Contact with and (suspected) exposure to COVID-19; F41.0 Panic disorder [episodic paroxysmal anxiety]; F12.90 Cannabis use, unspecified, uncomplicated; Z68.41 Body mass index [BMI] 40.0-44.9, adult; Z90.49 Acquired absence of other specified parts of digestive tract
CPT/HCPCS: 36415; 71045; 80053; 80061; 80307; 81001; 83036; 83605; 83735; 84443; 84484; 85025; 85379; 87426; 87804; 93005; 93017; 93306; G0378